=== PATIENT | female | born 1995 | race Asian ===

== ENCOUNTER 2018-08-02 07:46 | Emergency (ER) | payer MEDICAID ==
[~2018-08-02] VITALS: Ht 167.6 cm; Wt 66.0 kg
[2018-08-02 07:53] VITALS: BP 106/62
== END 2018-08-02 12:10 | disposition left against medical advice (07) ==
LOC: ER 08:20
DX: Z53.21 Procedure and treatment not carried out due to patient leaving prior to being seen by health care provider (principal)